=== PATIENT | female | born 1970 ===

== ENCOUNTER 2016-11-24 13:57 | Emergency (ER) | payer SELFPAY ==
[2016-11-24 14:03] VITALS: O2SAT 100
--- NOTE | 2016-11-24 14:35 | C.PDOC ---
History Of Present Illness 46 yo female requesting suture removal from upper lip. PT notes that her lip had a laceration repian one month ago in [place], she followed up and had the sutures removed by the doctor but later noted that some sutures were missed. No redness, swelling or discharge. No fever. Time Seen by Provider: 11/24/16 14:11 Chief Complaint (Nursing): Suture/Staple Removal History Per: Patient, Family History/Exam Limitations: language barrier Onset/Duration Of Symptoms: Days Ago (1 month) Past Medical History Vital Signs: Last Vital Signs Temp 98.6 F 11/24/16 14:00 Pulse 88 11/24/16 14:00 Resp 20 11/24/16 14:00 BP 132/81 11/24/16 14:00 Pulse Ox 100 11/24/16 14:35 - [facility] Procedures OTHER SKIN & SUBQ I D (03/01/13) Family History: States: Unknown Family Hx - Social History Hx Tobacco Use: No Hx Alcohol Use: Yes Hx Substance Use: No - Immunization History Hx Tetanus Toxoid Vaccination: No Hx Influenza Vaccination: Yes Hx Pneumococcal Vaccination: No Review Of Systems Except As Marked, All Systems Reviewed And Found Negative. Physical Exam - Physical Exam Appears: Well, Non-toxic, No Acute Distress Skin: Warm, Dry, Other ((+) 2 sutures noted in left inner mucosa of upper lip) Head: Atraumatic, Normacephalic Eye(s): bilateral: Normal Inspection, EOMI Nose: Normal Oral Mucosa: Moist, Other (No erythema, discharge, or signs of infection) Lips: No Swelling, No Erythema Neck: Normal Chest: Symmetrical Respiratory: No Accessory Muscle Use Neurological/Psych: Oriented x3, Normal Speech ED Course And Treatment O2 Sat by Pulse Oximetry: 100 Progress Note: Sutures removed x 2. Disposition - Disposition Disposition: HOME/ ROUTINE Disposition Time: 14:34 Condition: STABLE Additional Instructions: Vaya a hernandez mdico o la clnica en 2-5 steele sin falta, para mas evaluacin. Volver a la freddy de emergencia en cualquier momento si los sntomas persisten o empeoran. Instructions: Stitches Removal (ED) Print Language: GREEK - Clinical Impression Clinical Impression: Removal of suture
[2016-11-24 16:01] VITALS: BP 117/75; PULSE 77; RESP 16; TEMP 98.5
== END 2016-11-24 14:50 | disposition home or self-care (01) ==
LOC: C.ER 13:57
DX: Z48.02 Encounter for removal of sutures (principal)